=== PATIENT | female | born 1980 | race Caucasian/White ===

== ENCOUNTER 2017-02-17 17:09 | Emergency (ER) | payer MEDICAID ==
[2017-02-17 18:10] VITALS: BP 147/92
[2017-02-17] MEDS ORDERED: HYDROmorphone 1 MG/ML Syringe IM ONE (18:41)
--- NOTE | 2017-02-17 18:43 | EDM.PDOC ---
ED HPI GENERAL MEDICAL PROBLEM - General Chief Complaint: Lower Extremity Injury/Pain Stated Complaint: LEFT FOOT INJURY, SMASHED Time Seen by Provider: 02/17/17 18:38 Source of Information: Reports: Patient, RN Notes Reviewed History Limitations: Reports: No Limitations - History of Present Illness INITIAL COMMENTS - FREE TEXT/NARRATIVE: 37-year-old female presents emergency department day complaint of left foot pain she accidentally dropped a large log foot is experiencing pain had difficulty with ambulation large bruise across the dorsal aspect of foot left foot Pain Score (Numeric/FACES): 7 - Related Data Allergies Allergy/AdvReac Type Severity Reaction Status Date / Time zolpidem [From Ambien] Allergy Other Verified 02/17/17 18:01 Home Meds: Home Meds Gabapentin [Gabapentin] 300 mg PO BID 02/17/17 [History] Levothyroxine Sodium [Levothyroxine Sodium] 25 mcg PO DAILY 02/17/17 [History] Past Medical History Cardiovascular History: Reports: Hypertension [place] History: Reports: Musculoskeletal History: Reports: Back Pain, Chronic Psychiatric History: Reports: Anxiety, Depression Endocrine/Metabolic History: Reports: Hyperthyroidism Social & Family History - Tobacco Use Smoking Status *Q: Current Every Day Smoker Years of Tobacco use: 15 Packs/Tins Daily: 0.5 - Caffeine Use Caffeine Use: Reports: Coffee - Recreational Drug Use Recreational Drug Use: No Review of Systems - Review of Systems Review Of Systems: See Below Musculoskeletal: Reports: Foot Pain Skin: Reports: Bruising ED EXAM, GENERAL - Physical Exam Exam: See Below Free Text/Narrative:: Examination left lower extremities no tenderness at the knee no tenderness at the ankle she is exquisitely tender along the dorsal aspect of the foot limiting the exam large ecchymotic bruises appreciated across all the tarsal bones full range of motion of all digits mild amount of edema appreciated sensation appears to be intact Exam Limited By: No Limitations General Appearance: Alert, WD/WN, No Apparent Distress Course - Vital Signs Last Recorded V/S: Last Vital Signs Temp 97.9 F 02/17/17 18:09 Pulse 73 02/17/17 18:09 Resp 18 02/17/17 18:09 BP 147/92 H 02/17/17 18:09 Pulse Ox 95 02/17/17 18:09 - Orders/Labs/Meds Orders: Active Orders 24 hr Category Date Time Status Foot Comp Min 3V Lt [CR] Stat Exams 02/17/17 18:41 Taken Meds: Medications Discontinued Medications Generic Name Dose Route Start Last Admin Trade Name Varinder PRN Reason Stop Dose Admin Hydromorphone HCl 1 mg 02/17/17 18:41 Dilaudid IM 02/17/17 18:42 ONETIME ONE Departure - Departure Time of Disposition: 19:09 Disposition: Home, Self-Care 01 Condition: Good Clinical Impression: Contusion of foot, left Qualifiers: Encounter type: initial encounter Qualified Code(s): S90.32XA - Contusion of left foot, initial encounter - Discharge Information Forms: ED Department Discharge Additional Instructions: Continue to use hard soled shoe and crutches, pain is your guide. Please followup with your primary care provider in 3-5 days if not better, please call return to the emergency department with worsening of symptoms. - My Orders Last 24 Hours: My Active Orders 02/17/17 18:41 Foot Comp Min 3V Lt [CR] Stat - Assessment/Plan Last 24 Hours: My Active Orders 02/17/17 18:41 Foot Comp Min 3V Lt [CR] Stat Plan: Assessment Acuity = acute Site and laterality = bone contusion left foot Etiology = secondary to trauma Manifestations = pain Location of injury = Home Lab values = x-ray shows old healed fractures tarsals 4 and 5 no acute fracture Plan Should be placed in a hard she'll shoe and crutches ibuprofen and Tylenol as needed for pain control follow up with her primary care 57 days if no improvement Patient was in agreement with the plan all questions were answered, they were instructed to return to the emergency department or call for worsening symptoms. This note was dictated using [employer] voice recognition software please call with any questions.
== END 2017-02-17 20:13 | disposition home or self-care (01) ==
LOC: JP.ED 17:09
DX: S90.32XA Contusion of left foot, initial encounter (principal); W22.8XXA Striking against or struck by other objects, initial encounter; I10 Essential (primary) hypertension; M54.9 Dorsalgia, unspecified; G89.29 Other chronic pain; F41.9 Anxiety disorder, unspecified; F32.9 Major depressive disorder, single episode, unspecified; E05.90 Thyrotoxicosis, unspecified without thyrotoxic crisis or storm; F17.200 Nicotine dependence, unspecified, uncomplicated; Z91.09 Other allergy status, other than to drugs and biological substances; Z79.899 Other long term (current) drug therapy
CPT/HCPCS: 73630; 96372; 99284; J1170